=== PATIENT | male | born 1965 | race Caucasian/White ===

== ENCOUNTER 2021-01-25 12:03 | Emergency (ER) | payer MEDICARE, OTHER ==
[~2021-01-25 12:03] MED LIST: CELEXA20 MG PO; FLEXERIL 10 MG10 MG PO; IBUPROFEN800 MG PO; KEFLEX500 MG PO; LIORESAL TAB 1010 MG PO; LOVENOX SY30 MG/0.3 SQ; MOBIC15 MG PO; MS CONTIN15 MG PO; NABUMETONE500 MG PO; NEURONTIN 400400 MG PO; PERCOCET 10-321 EACH PO; SUBOXONE 8 MG-1 EACH SL; VITAMIN C 500500 MG PO; VITAMIN D350000 UNIT PO
[2021-01-25] MEDS ORDERED: MEDROL DOSEPAK 24 MG PO (13:35)
[2021-01-25] MEDS ORDERED: DELSYM30 MG/5 ML PO (13:35)
[2021-01-25] MEDS ORDERED: ZYRTEC10 MG PO (13:35)
[2021-01-25] MEDS ORDERED: FLONASE 0.05% N16 GM (13:35)
== END 2021-01-25 13:42 | disposition home or self-care (01) ==
LOC: ER1 12:03
DX: J06.9 Acute upper respiratory infection, unspecified (principal); F17.290 Nicotine dependence, other tobacco product, uncomplicated; Z20.822 Contact with and (suspected) exposure to COVID-19
CPT/HCPCS: 99283; U0002